=== PATIENT | female | born 1990 | race Caucasian/White ===

== ENCOUNTER 2016-09-09 15:07 | Emergency (ER) | payer SELFPAY ==
[2016-09-09] MEDS ORDERED: Dexamethasone 4 MG TAB ONE (15:37)
== END 2016-09-09 15:40 | disposition home or self-care (01) ==
LOC: MADERS 15:07
DX: J06.9 Acute upper respiratory infection, unspecified (principal); K21.9 Gastro-esophageal reflux disease without esophagitis; F17.210 Nicotine dependence, cigarettes, uncomplicated
CPT/HCPCS: J8540

== ENCOUNTER 2019-02-19 18:41 | Emergency (ER) | payer SELFPAY ==
[2019-02-19] MEDS ORDERED: Famotidine In NaCl 20 mg/50 ml Premix Bag ONE (19:01)
[2019-02-19] MEDS ORDERED: Penicillin V Potassium 250 MG TAB ONE (19:01)
[2019-02-19] MEDS ORDERED: Ibuprofen 800 MG TAB ONE (19:01)
== END 2019-02-19 19:10 | disposition home or self-care (01) ==
LOC: MADERS 18:41
DX: K04.7 Periapical abscess without sinus (principal); L03.211 Cellulitis of face; F17.210 Nicotine dependence, cigarettes, uncomplicated; Z71.6 Tobacco abuse counseling
CPT/HCPCS: 99406

== ENCOUNTER 2020-05-09 03:14 | Emergency (ER) | payer SELFPAY ==
[2020-05-09] MEDS ORDERED: Ketorolac Tromethamine 30 MG/ML VIAL ONE (03:31)
[2020-05-09] MEDS ORDERED: Ondansetron PF 4 MG/2 ML Vial ONE (03:31)
[2020-05-09 04:22] LABS: Hemoglobin 13.1 g/dL (12.0-16.0); Mean Corpuscular HGB CONC 35.5 g/dL (32.0-36.0); Mean Corpuscular Hemoglobin 32.3 pg (27.0-31.0); Mean Corpuscular Volume 90.8 fL (78.0-98.0); Mean Platelet Volume 6.8 fL (7.4-10.4); Platelet Count 115 thou/uL (130-400); RBC Distribution Width 11.8 % (11.5-14.5); Red Blood Cell (RBC) Count 4.06 mill/uL (4.20-5.40); White Blood Cell (WBC) Count 13.2 thou/uL (4.8-10.8)
[2020-05-09 04:24] LABS: BHCG - Serum Negative (NEGATIVE); Pregs Control Background? CLEAR/WHITE (CLR/WHITE); Pregs Control Bar Appear? YES (CONTROL BAR)
[2020-05-09 04:33] LABS: #Basophils 0.1 thou/uL (0.0-0.2); #Monocytes 1.2 thou/uL (0.11-0.59); #Neutrophils 11.1 thou/uL (1.40-6.50); %Basophils 0.8 % (0.0-1.0); %Lymphocytes 5.9 % (21.0-51.0); %Monocytes 8.9 % (0.0-10.0); %Neutrophils 84.4 % (42.0-75.0); Platelet Morphology Comment Appears Adequate; RBC Morphology Normal
[2020-05-09 04:35] LABS: ALT (SGPT) 132 U/L (8-55); AST (SGOT) 58 U/L (5-34); Albumin 3.6 g/dL (3.5-5.0); Alkaline Phosphatase 70 U/L (40-110); Anion Gap 15 mmol/L (10-20); BUN (Urea Nitrogen) 14 mg/dL (7.0-18.7); Calc. Creatinine Clearance 0 mL/min (70-130); Calcium 8.2 mg/dL (7.8-10.44); Carbon Dioxide 23 mmol/L (22-29); Chloride 104 mmol/L (98-107); Estimated GFR-MDRD 84; Globulin 3.1 g/dL (2.4-3.5); Glucose 95 mg/dL (70-105); Potassium 4.2 mmol/L (3.5-5.1); Protein, Total 6.7 g/dL (6.0-8.3); Sodium 138 mmol/L (136-145)
[2020-05-09 04:36] LABS: Alcohol Less than 10 mg/dL (Less than 10); Salicylate Less than 8.0 mg/dL (15.0-30.0)
[2020-05-09 04:48] LABS: Neutrophil 84 % (42-75)
[2020-05-09 04:49] LABS: Band 0 % (5-11); Eosinophils 1 % (0-10); Lymphocytes 6 % (21-51); Monocytes 9 % (0-10); Reactive Lymphocytes 0 % (0-10)
[2020-05-09 04:52] LABS: MDiff Complete? YES
[2020-05-09 05:04] LABS: Bilirubin Negative (Negative); Blood, Urine Negative (Negative); Glucose, Urine (Dipstick) Negative (Negative); Ketone, Urine Negative (Negative); Leukocyte Moderate (Negative); Nitrite Negative (Negative); Protein, Urine (Dipstick) Negative (Neg-Trace); Urobilinogen 0.2 mg/dL (Less than 2)
[2020-05-09 05:05] LABS: Clarity Slightly Cloudy (Clear)
[2020-05-09 05:10] LABS: Bacteria/HPF 2+ HPF (None Seen); RBC/HPF 0-3 HPF (0-3); Squamous Epithelial 0-3 HPF (0-3)
[2020-05-09 05:11] LABS: THC/Cannabinoid Screen Not Detected (NotDetected)
[2020-05-09 05:12] LABS: Amphetamine Detected (NotDetected); Barbiturates Screen Not Detected (NotDetected); Benzodiazepine Screen Not Detected (NotDetected); Cocaine Metabolite Screen Not Detected (NotDetected); Medtox Control Line Valid? VALID (VALID); Methadone Not Detected (NotDetected); Methamphetamine Detected (NotDetected); Opiate Screen Not Detected (NotDetected); Oxycodone Screen Not Detected (NotDetected); Phencyclidine (PCP) Not Detected (NotDetected); Tricyclic Screen Not Detected (NotDetected)
[2020-05-09] MEDS ORDERED: Ciprofloxacin Lactate/D5W 400 mg/200 ml Premix ONE (06:13)
[2020-05-09] MEDS ORDERED: Sodium Chloride 0.9% 1,000 ML BAG ONE (06:21)
--- NOTE | 2020-05-09 08:18 | CT ---
PRELIMINARY REPORT/[facility]/EMERGENCY AFTER HOURS PROCEDURE EXAM: CT Abdomen and Pelvis with Intravenous Contrast CLINICAL HISTORY: N/V; left flank pain TECHNIQUE: Axial computed tomography images of the abdomen and pelvis with intravenous contrast. CONTRAST: With; isovue [id number] COMPARISON: None provided. FINDINGS: LUNG BASES: No basilar airspace consolidation or pleural effusion. LIVER: Unremarkable. GALLBLADDER AND BILE DUCTS: Unremarkable. No calcified stone. No ductal dilation. PANCREAS: Unremarkable. SPLEEN: Mild splenomegaly. Spleen measuring about 14 cm in greatest dimension. ADRENAL GLANDS: Unremarkable. KIDNEYS, URETERS, AND BLADDER: Some mildly heterogeneous enhancement of the upper pole of the left kidney noted but there is also an element of parenchymal thinning present with a small cyst near the superior pole. May be some slightly asymmetric perinephric stranding and some slight mucosal enhancement of the proximal ureter and renal pelvis. No hydronephrosis. No renal stones. STOMACH AND BOWEL: No obstruction. No wall thickening. No CT evidence of colitis or acute diverticulitis. APPENDIX: Normal appendix. PERITONEUM: No free fluid. No free air. LYMPH NODES: No lymphadenopathy. REPRODUCTIVE: Unremarkable as visualized. VASCULATURE: No aortic aneurysm. BONES: No fracture or suspicious osseous abnormality. ABDOMINAL WALL AND SOFT TISSUES: Unremarkable. IMPRESSION: Some relatively indeterminant findings associated with the left kidney with some concern for possible pyelonephritis. Correlation with urinalysis. There may be an element of parenchymal thinning-scarring which may be related to a prior episode as well. Mild splenomegaly. Exam otherwis e unremarkable. ELECTRONICALLY SIGNED BY: Flash Milligan MD May 09, 2020 6:09:27 AM [employer] This report is intended for review by the ordering physician only, in accordance of law. If you recei ve this report in error, please call [facility] at [phone]. FINAL REPORT: CT abdomen and pelvis with IV contrast PROVIDED CLINICAL HISTORY: Left flank pain COMPARISON: None FINDINGS/IMPRESSION: Agree with the preliminary interpretation given by [facility]. Transcribed Date/Time: 05/09/2020 8:25 AM
[2020-05-09] MEDS ORDERED: Iopamidol 370 76% 100 ML VIAL ONE (09:48)
== END 2020-05-09 07:50 | disposition home or self-care (01) ==
LOC: MADERS 03:14
DX: N10 Acute pyelonephritis (principal); F17.210 Nicotine dependence, cigarettes, uncomplicated
CPT/HCPCS: 74177; 80053; 80306; 80307; 81003; 81015; 83605; 84703; 85025; 86140; 87040; 87077; 87149; 96365; 96374; 96375; J0744; J1885; J2405; J7050; Q9967

== ENCOUNTER 2020-11-23 17:43 | Emergency (ER) | payer SELFPAY ==
[2020-11-23 18:16] LABS: Bilirubin Small (Negative); Blood, Urine Negative (Negative); Glucose, Urine (Dipstick) Negative (Negative); Ketone, Urine Trace mg/dL (Negative); Leukocyte Trace (Negative); Nitrite Positive (Negative); Protein, Urine (Dipstick) Negative (Neg-Trace)
[2020-11-23 18:19] LABS: Pregnancy Test - Urine (BHCG) Negative (Negative); Pregu Control Background? CLEAR/WHITE (CLR/WHITE); Pregu Control Bar Appear? YES (CONTROL BAR); Specific Gravity 1.028 (1.002-1.036)
[2020-11-23 18:20] LABS: Clarity Cloudy (Clear); Specific Gravity, Urine 1.028 (1.002-1.036)
[2020-11-23 18:23] LABS: RBC/HPF None Seen HPF (0-3)
[2020-11-23 18:24] LABS: Bacteria/HPF 4+ HPF (None Seen)
[2020-11-23] MEDS ORDERED: Sulfameth/Trimethoprim DS 800-160mg TAB ONE (18:49)
[2020-11-23] MEDS ORDERED: Ibuprofen 400 MG TAB ONE (18:49)
== END 2020-11-23 18:55 | disposition home or self-care (01) ==
LOC: MADERS 17:43
DX: R10.9 Unspecified abdominal pain (principal); N91.2 Amenorrhea, unspecified; N39.0 Urinary tract infection, site not specified; R16.1 Splenomegaly, not elsewhere classified; F17.210 Nicotine dependence, cigarettes, uncomplicated
CPT/HCPCS: 81003; 81015; 81025; 99284

== ENCOUNTER 2022-09-12 18:29 | Emergency (ER) | payer MEDICAID ==
[~2022-09-12 18:29] MED LIST: Iopamidol 370 76% 100 ML VIAL ONE
[2022-09-12 19:08] LABS: Bilirubin Large (Negative); Blood, Urine Large (Negative); Glucose, Urine (Dipstick) 100 mg/dL (Negative); Ketone, Urine 15 mg/dL (Negative); Leukocyte Large (Negative); Nitrite Positive (Negative); Protein, Urine (Dipstick) > or equal to 300 mg/dL (Neg-Trace)
[2022-09-12 19:09] LABS: Clarity Very Cloudy (Clear)
[2022-09-12 19:11] LABS: Bacteria/HPF Rare-Few HPF (None Seen); RBC/HPF Greater than 50 HPF (0-3); WBC/HPF Greater Than 50 HPF (0-3)
[2022-09-12] MEDS ORDERED: Acetaminophen 500 MG TAB ONE (19:18)
[2022-09-12 19:27] LABS: Amphetamine Detected (NotDetected); Benzodiazepine Screen Not Detected (NotDetected); Cocaine Metabolite Screen Not Detected (NotDetected); Methamphetamine Detected (NotDetected); Opiate Screen Not Detected (NotDetected); Phencyclidine (PCP) Not Detected (NotDetected); THC/Cannabinoid Screen Not Detected (NotDetected); Tricyclic Screen Not Detected (NotDetected)
[2022-09-12 19:28] LABS: Barbiturates Screen Not Detected (NotDetected); Methadone Not Detected (NotDetected); Oxycodone Screen Not Detected (NotDetected)
[2022-09-12 19:34] LABS: Pregnancy Test - Urine (BHCG) Negative (Negative); Pregu Control Background? CLEAR/WHITE (CLR/WHITE); Pregu Control Bar Appear? YES (CONTROL BAR)
[2022-09-12 19:53] LABS: Hemoglobin 14.3 g/dL (12.0-16.0); Mean Corpuscular HGB CONC 33.9 g/dL (32.0-36.0); Mean Corpuscular Hemoglobin 31.5 pg (27.0-31.0); Mean Corpuscular Volume 92.7 fl (78.0-98.0); Mean Platelet Volume 9.5 fL (7.4-10.4); Platelet Count 87 10x3/uL (130-400); RBC Distribution Width 12.1 % (11.5-14.5); Red Blood Cell (RBC) Count 4.55 mill/uL (4.20-5.40); White Blood Cell (WBC) Count 3.6 10x3/uL (4.8-10.8)
[2022-09-12 19:54] LABS: Band 3 % (5-11); Lymphocytes 27 % (21-51); MDiff Complete? YES; Monocytes 12 % (0-10); Neutrophil 58 % (42-75); Platelet Morphology Comment Appears Decreased; RBC Morphology Normal
[2022-09-12 19:59] LABS: ALT (SGPT) 312 U/L (8-55); AST (SGOT) 172 U/L (5-34); Albumin 3.9 g/dL (3.5-5.0); Alkaline Phosphatase 119 U/L (40-110); Anion Gap 13 mmol/L (10-20); BUN (Urea Nitrogen) 9 mg/dL (7.0-18.7); Bilirubin, Direct 0.3 mg/dL (0.1-0.3); Bilirubin, Total 0.5 mg/dL (0.2-1.2); Calc. Creatinine Clearance 0 mL/min (70-130); Calcium 9.1 mg/dL (7.8-10.44); Carbon Dioxide 26 mmol/L (22-29); Chloride 101 mmol/L (98-107); Estimated GFR 82; Glucose 71 mg/dL (70-105); Potassium 4.1 mmol/L (3.5-5.1); Protein, Total 7.3 g/dL (6.0-8.3); Sodium 136 mmol/L (136-145)
[2022-09-12] MEDS ORDERED: Sodium Chloride 0.9% 100 ML ONE (23:39)
[2022-09-12] MEDS ORDERED: Sodium Chloride 0.9% 2,000 ML ONE (23:39)
[2022-09-12] MEDS ORDERED: cefTRIAXone (ROCEPHIN) 1 GM VIAL ONE (23:39)
== END 2022-09-13 00:25 | disposition home or self-care (01) ==
LOC: MADERS 18:29
DX: N10 Acute pyelonephritis (principal); F17.210 Nicotine dependence, cigarettes, uncomplicated
CPT/HCPCS: 74177; 80048; 80076; 80306; 81003; 81015; 81025; 85025; 87077; 87086; 87186; 96365; J0696; J3490; J7050; Q9967

== ENCOUNTER 2025-01-30 00:46 | Emergency (ER) | payer OTHER ==
[2025-01-30] MEDS ORDERED: cefTRIAXone (ROCEPHIN) 1 GM VIAL ONE (01:53)
[2025-01-30] MEDS ORDERED: Acetaminophen 325 MG TAB ONE (01:54)
[2025-01-30 02:10] LABS: BHCG - Serum Negative (NEGATIVE); Pregs Control Background? CLEAR/WHITE (CLR/WHITE); Pregs Control Bar Appear? YES (CONTROL BAR)
[2025-01-30 02:13] LABS: Hematocrit 44.7 % (36.0-47.0); Hemoglobin 15.2 g/dL (12.0-16.0); Mean Corpuscular Hemoglobin 30.7 pg (27.0-31.0); Mean Corpuscular Volume 90.4 fl (78.0-98.0); Red Blood Cell (RBC) Count 4.94 mill/uL (4.20-5.40); White Blood Cell (WBC) Count 7.8 10x3/uL (4.8-10.8)
[2025-01-30 02:14] LABS: MDiff Complete? YES; Platelet Adequacy Comment Appears Decreased; Platelet Count 91 10x3/uL (130-400)
[2025-01-30 02:20] LABS: ALT (SGPT) 123 U/L (Less than 34); AST (SGOT) 69 U/L (11-34); Albumin 3.7 g/dL (3.1-4.5); Alkaline Phosphatase 114 U/L (40-110); Anion Gap 18 mmol/L (10-20); BUN (Urea Nitrogen) 12 mg/dL (7.0-18.7); Bilirubin, Total 1.0 mg/dL (0.3-1.2); Calc. Creatinine Clearance 0 mL/min (70-130); Calcium 9.1 mg/dL (7.8-10.44); Carbon Dioxide 20 mmol/L (22-29); Chloride 101 mmol/L (98-107); Globulin 4.2 g/dL (2.4-3.5); Glucose 99 mg/dL (70-105); Potassium 4.2 mmol/L (3.5-5.1); Sodium 135 mmol/L (136-145)
[2025-01-30] MEDS ORDERED: diphenhydrAMINE 50 MG/ML VIAL ONE (02:52)
[2025-01-30 03:31] LABS: Bacteria/HPF Rare-Few HPF (None Seen); CAUTI Indications for Culture Fever or rigors; Glucose, Urine (Dipstick) Negative (Negative); Leukocyte Trace (Negative); Mucous/LPF 2+ LPF (<2+); Protein, Urine (Dipstick) Negative (Neg-Trace); RBC/HPF None Seen HPF (0-3); Specific Gravity, Urine 1.025 (1.005-1.030)
[2025-01-30 03:32] LABS: Urine Culture Reflex Yes Yes
[2025-01-30 03:34] LABS: Cocaine Metabolite Screen Negative (Negative); THC/Cannabinoid Screen Negative (Negative); Tricyclic Screen Negative (Negative)
== END 2025-01-30 04:17 | disposition home or self-care (01) ==
LOC: MADERS 00:46
DX: S80.861A Insect bite (nonvenomous), right lower leg, initial encounter (principal); D69.6 Thrombocytopenia, unspecified; F17.210 Nicotine dependence, cigarettes, uncomplicated; W57.XXXA Bitten or stung by nonvenomous insect and other nonvenomous arthropods, initial encounter
CPT/HCPCS: 80053; 80306; 81001; 83605; 84703; 85025; 87040; 87086; 96365; 96375; J0696; J1200; J3373; J7030; J7050